=== PATIENT | female | born 1955 | race Caucasian/White ===

== ENCOUNTER 2023-04-30 10:42 | Outpatient (CLI) | payer MEDICARE, OTHER | END 2023-04-30 10:43 | disposition home or self-care (01) | LOC: CSHRAD 10:42 | PROVIDERS: ATTEND Family Medicine | DX: Q74.0 Other congenital malformations of upper limb(s), including shoulder girdle (principal) ==

== ENCOUNTER 2024-02-19 07:38 | Outpatient (CLI) | payer MEDICARE, OTHER | END 2024-02-19 07:39 | disposition home or self-care (01) | LOC: CSHMAMMO 07:38 | PROVIDERS: ATTEND Family Medicine | DX: Z12.31 Encounter for screening mammogram for malignant neoplasm of breast (principal); Z80.3 Family history of malignant neoplasm of breast; Z91.89 Other specified personal risk factors, not elsewhere classified | CPT/HCPCS: 77063; 77067 ==